=== PATIENT | male | born 1980 | race Caucasian/White ===

== ENCOUNTER 2017-07-11 10:49 | Emergency (ER) | payer BC ==
--- NOTE | 2017-07-11 11:04 | EDM.PDOC ---
ED HPI GENERAL MEDICAL PROBLEM - General Chief Complaint: Upper Extremity Injury/Pain Stated Complaint: RT HAND SWOLLEN Time Seen by Provider: 07/11/17 11:00 - History of Present Illness INITIAL COMMENTS - FREE TEXT/NARRATIVE: HISTORY AND PHYSICAL: History of present illness: Patient 36-year-old white male presents with a concern of right hand injury he denies any other trauma or concern he's had some swelling and discomfort since. Review of systems: As per history of present illness and below otherwise all systems reviewed and negative. Past medical history: As per history of present illness and as reviewed below otherwise noncontributory. Surgical history: As per history of present illness and as reviewed below otherwise noncontributory. Social history: No reported history of drug or alcohol abuse. Family history: As per history of present illness and as reviewed below otherwise noncontributory. Physical exam: HEENT: Atraumatic, normocephalic, pupils reactive, negative for conjunctival pallor or scleral icterus, mucous membranes moist, throat clear, neck supple, nontender, trachea midline. Lungs: Clear to auscultation, breath sounds equal bilaterally, chest nontender. Heart: S1S2, regular, negative for clicks, rubs, or JVD. Abdomen: Soft, nondistended, nontender. Negative for masses or hepatosplenomegaly. Negative for costovertebral tenderness. Pelvis: Stable nontender. Genitourinary: Deferred. Rectal: Deferred. Extremities: Right hand swelling primarily over the dorsal aspect is no crepitation maximal tenderness over the base of the fifth metacarpal neurovascular exams unremarkable Neuro: Awake, alert, oriented. Cranial nerves II through XII unremarkable. Cerebellum unremarkable. Motor and sensory unremarkable throughout. Exam nonfocal. Diagnostics: X-ray right hand Therapeutics: Ulnar gutter / sling Impression: #1 right hand injury Definitive disposition and diagnosis as appropriate pending reevaluation and review of above. - Related Data Allergies Allergy/AdvReac Type Severity Reaction Status Date / Time No Known Allergies Allergy Verified 07/11/17 11:08 Home Meds: Home Meds . [No Known Home Meds] 04/05/14 [History] Past Medical History - Past Health History Medical/Surgical History: Denies Medical/Surgical History Social & Family History - Tobacco Use Smoking Status *Q: Never Smoker Second Hand Smoke Exposure: Yes - Alcohol Use Days Per Week of Alcohol Use: 0 - Recreational Drug Use Recreational Drug Use: No Review of Systems - Review of Systems Review Of Systems: ROS reveals no pertinent complaints other than HPI. ED EXAM, GENERAL - Physical Exam Exam: See Below (See dictation) Course - Vital Signs Last Recorded V/S: Last Vital Signs Temp 36.6 C 07/11/17 11:06 Pulse 72 07/11/17 11:06 Resp 18 07/11/17 11:06 BP 139/80 07/11/17 11:06 Pulse Ox 98 07/11/17 11:06 - Orders/Labs/Meds Orders: Active Orders 24 hr Category Date Time Status Hand 2V Rt [CR] Stat Exams 07/11/17 11:02 Taken Meds: Medications Discontinued Medications Generic Name Dose Route Start Last Admin Trade Name Estevan PRN Reason Stop Dose Admin Lidocaine/Epinephrine Confirm 07/11/17 11:33 Xylocaine 1% With Epinephrine 1:100,000 Administered 07/11/17 11:34 Dose 20 ml .ROUTE .STK-MED ONE Departure - Departure Time of Disposition: 11:45 Disposition: Home, Self-Care 01 Condition: Good Clinical Impression: Hand fracture - Discharge Information Referrals: PCP,None [Primary Care Provider] - Forms: ED Department Discharge Additional Instructions: The following information is given to patients seen in the emergency department who are being discharged to home. This information is to outline your options for follow-up care. We provide all patients seen in our emergency department with a follow-up referral. The need for follow-up, as well as the timing and circumstances, are variable depending upon the specifics of your emergency department visit. If you don't have a primary care physician on staff, we will provide you with a referral. We always advise you to contact your personal physician following an emergency department visit to inform them of the circumstance of the visit and for follow-up with them and/or the need for any referrals to a consulting specialist. The emergency department will also refer you to a specialist when appropriate. This referral assures that you have the opportunity for followup care with a specialist. All of these measure are taken in an effort to provide you with optimal care, which includes your followup. Under all circumstances we always encourage you to contact your private physician who remains a resource for coordinating your care. When calling for followup care, please make the office aware that this follow-up is from your recent emergency room visit. If for any reason you are refused follow-up, please contact the [facility] emergency department at and asked to speak to the emergency department charge nurse. [facility] [address], [address] [place] [address] Ulnar gutter splint and sling as directed Motrin/Tylenol as directed call to schedule appointment with orthopedic clinic above return as needed as discussed - My Orders Last 24 Hours: My Active Orders 07/11/17 11:02 Hand 2V Rt [CR] Stat - Assessment/Plan Last 24 Hours: My Active Orders 07/11/17 11:02 Hand 2V Rt [CR] Stat
[2017-07-11 11:26] VITALS: BP 139/80
[2017-07-11] MEDS ORDERED: Lidocaine 1% with EPINEPHrine 1:100,000 20 ML MDV ONE (11:33)
[2017-07-11] MEDS ORDERED: Diphtheria,Pertussis(Acell),Tetanus Vaccine 0.5 ML Syringe IM ONE (11:45)
[2017-07-11] MEDS ORDERED: Bacitracin Oint 1 GM U/D Packet TOP ONE (11:45)
--- NOTE | 2017-07-13 10:38 | CR ---
EXAM DATE: 07/11/17 PATIENT'S AGE: 36 Patient: ELLIS KEANREY Facility: [place], [place] Site . Site : 1980 Study: XRay Extremity [id number]/21/2018 11:31:36 AM Ordering Physician: Doctor Machado Final Report: HISTORY: Right hand pain. TECHNIQUE: Two views of the right hand obtained portably. COMPARISON: No prior. FINDINGS: There is an acute mildly displaced fracture involving the proximal metaphysis of the 5th metacarpal bone. No other acute fracture. Osseous structures otherwise intact. Joint spaces maintained. IMPRESSION: Acute mildly displaced fracture involving the proximal aspect of the 5th metacarpal bone of the right hand. Dictated by Delta Banuelos MD @ 07/11/2017 11:47:00 AM Dictated by: Delta Banuelos MD @ 07/11/2017 11:47:05 (Electronic Signature) Report Signed by Proxy. LISA
== END 2017-07-11 12:10 | disposition home or self-care (01) ==
LOC: MW.ED 10:49
DX: S62.316A Displaced fracture of base of fifth metacarpal bone, right hand, initial encounter for closed fracture (principal); Z77.22 Contact with and (suspected) exposure to environmental tobacco smoke (acute) (chronic); W10.9XXA Fall (on) (from) unspecified stairs and steps, initial encounter
CPT/HCPCS: 73120-26-RT; 73120-RT; 99283